=== PATIENT | female | born 2000 | race Hispanic/Latino ===

== ENCOUNTER 2018-02-04 16:18 | Emergency (ER) | payer OTHER, SELFPAY ==
[2018-02-04 16:58] LABS: #Basophils 0.1 thou/uL (0.0-0.2); #Eosinphils 0.1 thou/uL (0.0-0.7); #Lymphocytes 3.7 thou/uL (1.20-3.40); #Monocytes 0.6 thou/uL (0.11-0.59); #Neutrophils 6.5 thou/uL (1.40-6.50); %Basophils 0.7 % (0.0-1.0); %Eosinophils 1.2 % (0.0-10.0); %Lymphocytes 33.7 % (28.0-48.0); %Neutrophils 59.4 % (31.0-61.0); Hemoglobin 14.5 g/dL (12.0-16.0); Mean Corpuscular HGB CONC 33.5 g/dL (32.0-36.0); Mean Corpuscular Hemoglobin 30.6 pg (25.0-35.0); Mean Corpuscular Volume 91.5 fl (77.0-87.0); Mean Platelet Volume 7.5 fL (7.4-10.4); Platelet Count 269 thou/uL (130-400); RBC Distribution Width 12.4 % (11.5-14.5); Red Blood Cell (RBC) Count 4.74 mill/uL (4.00-5.20); White Blood Cell (WBC) Count 10.9 thou/uL (4.8-10.8)
--- NOTE | 2018-02-04 17:01 | RAD ---
PORTABLE UPRIGHT FRONTAL CHEST RADIOGRAPH 02/04/18 COMPARISON: None. HISTORY: Supraventricular tachycardia, heart rate of 220s. FINDINGS: The lungs are clear. The heart and mediastinal contours are unremarkable. IMPRESSION: No acute findings. POS: [facility]
[2018-02-04 17:21] LABS: Troponin I 0.022 ng/mL (< 0.028)
[2018-02-04] MEDS ORDERED: Metoprolol Tartrate 5 MG/5 ML VIAL ONE ×2 (17:21)
[2018-02-04 17:23] LABS: ALT (SGPT) 17 U/L (8-55); AST (SGOT) 17 U/L (5-30); Albumin 4.6 g/dL (3.5-5.0); Alkaline Phosphatase 120 U/L (40-150); Anion Gap 18 mmol/L (10-20); BUN (Urea Nitrogen) 8 mg/dL (8.4-21.0); Bilirubin, Total 0.8 mg/dL (0.2-1.2); CK (CPK) 78 U/L (29-168); Calc. Creatinine Clearance 0 mL/min (70-130); Calcium 10.3 mg/dL (7.8-10.44); Carbon Dioxide 22 mmol/L (22-29); Chloride 103 mmol/L (98-107); Estimated GFR-MDRD Greater than 90; Globulin 2.8 g/dL (2.4-3.5); Glucose 89 mg/dL (70-105); Magnesium 2.1 mg/dL (1.7-2.2); Potassium 3.9 mmol/L (3.5-5.1); Protein, Total 7.4 g/dL (6.0-8.3); Sodium 139 mmol/L (136-145)
== END 2018-02-04 18:09 | disposition home or self-care (01) ==
LOC: ERS 16:18
DX: I47.1 Supraventricular tachycardia (principal)
CPT/HCPCS: 36415; 71045; 80053; 82553; 83735; 84484; 85025; 93005; 96374

== ENCOUNTER 2018-05-02 10:55 | Observation (INO) | payer OTHER, SELFPAY ==
[2018-05-02] MEDS ORDERED: Lidocaine 1% (PF) 30 ML VIAL ONE (12:53)
[2018-05-02] MEDS ORDERED: Heparin 10,000 UNITS/1 ML VIAL ONE (12:59)
[2018-05-02] MEDS ORDERED: Midazolam HCl 2 mg/2 ml Vial ONE ×2 (13:37→14:58)
[2018-05-02 13:58] LABS: BHCG - Serum Negative (NEGATIVE); Pregs Control Background? CLEAR/WHITE (CLR/WHITE); Pregs Control Bar Appear? YES (CONTROL BAR)
[2018-05-02] MEDS ORDERED: Fentanyl 100 MCG/2 ML VIAL ONE ×2 (14:58→17:35)
[2018-05-02] MEDS ORDERED: Propofol 1,000 MG/100 ML VIAL IV ONE (14:58)
[2018-05-02] MEDS ORDERED: Heparin 25,000 units/D5W 500 ML ONE (16:08)
[2018-05-02] MEDS ORDERED: Isoproterenol 0.2 MG/1 ML AMP ONE (16:33)
[2018-05-02] MEDS ORDERED: Promethazine HCl 25 MG/ML VIAL SLOW IVP PRN (17:04)
[2018-05-02] MEDS ORDERED: Promethazine HCl 25 MG/ML VIAL IM PRN (17:04)
[2018-05-02] MEDS ORDERED: Ondansetron HCl/PF 4 MG/2 ML Vial IVP PRN (17:04)
[2018-05-02] MEDS ORDERED: Protamine Sulfate 50 MG/5 ML VIAL ONE (17:19)
[2018-05-02] MEDS ORDERED: Acetaminophen/Codeine 30-300mg Tablet PO PRN ×2 (18:15)
[2018-05-02 18:36] VITALS: BMI 35.6
--- NOTE | 2018-05-03 01:50 | OP ---
DATE OF SERVICE: 05/02/2018 ELECTROPHYSIOLOGY STUDY AND RADIOFREQUENCY ABLATION REPORT REFERRING PHYSICIAN: Israel Gambino M.D. REASON FOR PROCEDURE: Ms. Parker is a 17-year-old woman who is presenting with SVT in the ER in February. She has frequent palpitations. She is here for EP study and radiofrequency ablation. PROCEDURE: The patient was received propofol by Anesthesia specialist. After adequate sedation achieved, the left femoral venous area was prepped, draped, anesthetized using subcutaneous lidocaine and with ultrasound guidance, the left femoral vein was cannulated x2 and a 6 and 8 [place] short sheath was introduced. The sheaths were used to advance an octapolar and decapolar catheter to the RV, RA, His bundle and CS position. Pacing, mapping, and recording was performed in each location with the following findings. The baseline cycle length is 1 milliseconds sinus rhythm, RI 144, QRS 76, QT 352 , AH 94 milliseconds, HV 50 milliseconds. No evidence of preexcitation is seen. A ventricular cycle is 290 milliseconds, retrograde Wenckebach cycle length was less than 320 milliseconds. Eccentric retrograde VA conduction was seen with earliest activation of the lateral CS and noted of the atrium during ventricular pacing. AV ERP was 500/350. VA ERP was 500/270. With the burst ventricular pacing, we were able to induce narrow complex supraventricular tachycardia with a cycle length of 320 milliseconds. This also showed eccentric retrograde atrial activation with VA timing less than 3 milliseconds. The earliest at the CS 2 to 3 pause. Ventricular overdrive pacing terminated the arrhythmia. The arrhythmia was typical for AVRT, type of arrhythmia utilizing left lateral accessory pathway, therefore, right femoral venous puncture was performed introducing an 11 and an 8 [place] short sheaths. The 11 [place] short sheath was used to advance a 10 [place] ice catheter, which was used to monitor the transseptal puncture as well as effusion throughout the study. The 8 [place] short sheath was then exchanged to a SL1 catheter was used to help with the [place] transseptal needle to perform transseptal puncture. Following that, a Thermo[employer] SF ST catheter was entered into the left atrium after heparinization. ACT was monitored throughout the study to obtain an ACT over 320. Following that, the 3D map of the left atrium was obtained during VA pacing. Earliest retrograde activation in the atrium was noted with prominent pathway potential. This correlated to earliest activation registered during tachycardia. Single 40 vivar burn has eliminated the retrograde VA conduction at the site within the first few seconds of the ablation. Total of 60 seconds of a burn delivered at 40 vivar pressure were monitored throughout the study. Following that, no tachycardia was inducible with burst atrial and ventricular pacing. The VA Wenckebach increased to 540 milliseconds and become central. AV Wenckebach cycle was unchanged at 300 milliseconds, unchanged. Atrial interval was unchanged 37 milliseconds, the AH 95, QT 352, QRS 70 milliseconds, RI 136 milliseconds, sinus cycle length 630 milliseconds. At this point, isuprel was administered and the induction was repeated, but no tachycardia was induced. The catheter was withdrawn and heparin was reversed for pulling the sheath. CONCLUSION: Easily inducible narrow complex tachycardia consistent with AV re- entry tachycardia with cycle length 320 milliseconds. Utilizing left lateral accessory pathway. Transseptal puncture and subsequent left lateral accessory pathway eliminated inducibility of the tachycardia as well as the eccentric retrograde atrial activation during ventricular pacing. PLAN: Routine postoperative care. EC ASA 81 mg for 2 weeks. MTDD
[2018-05-03 08:07] VITALS: BP 123/88; TEMP 98.3
--- NOTE | 2018-05-03 18:17 | DIS ---
DATE OF ADMISSION: 05/02/2018f DATE OF DISCHARGE: 05/03/2018 ADMITTING DOCTOR: Alexei Herrera M.D. DISCHARGING DOCTOR: Alexei Herrera M.D. REFERRING PHYSICIAN: Israel Gabmino M.D. PROCEDURES PERFORMED: EP study and radiofrequency ablation for narrow complex tachycardia, AV reentr ant tachycardia utilizing left Lateral accessory pathway. COMPLICATIONS: None. CONDITION AT DISCHARGE: Stable. COURSE OF STAY AND HISTORY OF PRESENT ILLNESS: Ms. Parker is a 17-year-old woman who presented to the emergency room in February with SVT and reports frequent palpitations. She was admitted to [facility] on on the for EP study and radiofrequency ablation. During EP study, narrow complex SVT with a cycle length of 320 milliseconds was easily inducible that showed eccentric retrograde atrial activat ion of VA timing less than 3 milliseconds. Utilizing left lateral accessory pathways, radiofrequency ablation was performed successfully terminating her accessory pathway and SVT. There were no compli cations postoperatively. She has done well overnight, maintaining sinus rhythm. Her groin sites are stable and no hematoma has been seen for complications. Recommend aspirin 81 mg daily x2 weeks. Terry randhawa has not taken any additional home medications. She does not have any allergies. All questions hav e been answered and we will see her back clinic in 4-6 weeks for routine postoperative care. HOME MEDICATIONS: No prior medications discharging on aspirin 81 mg p.o. daily x2 weeks. DISCHARGE INSTRUCTIONS: No soaking baths, no lifting more than 15 pounds for the next week, then may resume activity without restrictions as tolerated. Follow up in 6 weeks and to see in clinic as req uested or sooner if symptoms .
--- NOTE | 2018-05-08 08:23 | EKG ---
Test Reason : Blood Pressure : / mmHG Vent. Rate : 073 BPM Atrial Rate : 073 BPM P-R Int : 144 ms QRS Dur : 078 ms QT Int : 378 ms P-R-T Axes : 044 064 048 degrees QTc Int : 416 ms Normal sinus rhythm Normal ECG When compared with ECG of 10-APR-2018 15:16, No significant change was found Confirmed by DR. Yuki SPANGLER ([id number]) on 05/08/2018 8:23:44 AM Referred By: ROSELYN Confirmed By:DR. Yuki SPANGLER
== END 2018-05-03 13:25 | disposition home or self-care (01) ==
LOC: CCL 10:55 → 2SW 18:27
PROVIDERS: ADMIT Internal Medicine Cardiovascular Disease; ATTEND Internal Medicine Cardiovascular Disease
PROC: 4A023FZ Measurement of Cardiac Rhythm, Percutaneous Approach (ICD-10-PCS; principal; 2018-05-02)
PROC: 4A0234Z Measurement of Cardiac Electrical Activity, Percutaneous Approach (ICD-10-PCS; 2018-05-02)
PROC: 02583ZZ Destruction of Conduction Mechanism, Percutaneous Approach (ICD-10-PCS; 2018-05-02)
PROC: 02K83ZZ Map Conduction Mechanism, Percutaneous Approach (ICD-10-PCS; 2018-05-02)
DX: I47.1 Supraventricular tachycardia (principal); G40.909 Epilepsy, unspecified, not intractable, without status epilepticus; Z79.899 Other long term (current) drug therapy
CPT/HCPCS: 36415; 76942; 84703; 85347; 93005; 93010; 93462; 93613; 93623; 93653; 93662; 96374; C1730; C1759; C1769; G0378; J1644; J2001; J2250; J2704; J2720; J3010